=== PATIENT | female | born 1985 | race African-American/Black ===

== ENCOUNTER 2018-08-09 06:52 | Emergency (ER) | payer MEDICAID ==
[~2018-08-09] VITALS: Ht 165.1 cm; Wt 133.0 kg
[2018-08-09 08:40] LABS: BASOPHILS % 0.7 % (0.0-2.0); EOSINOPHILS % 3.3 % (0.0-5.0); HEMATOCRIT. 31.8 % (36.0-48.0); HEMOGLOBIN. 10.6 g/dL (12.0-16.0); LYMPHOCYTES % 11.3 % (20.0-50.0); MEAN CORPUSCULAR HEMOGLOBIN 29.6 pg (28.0-32.0); MEAN CORPUSCULAR VOLUME 88.6 fL (81.0-99.0); MEAN PLATELET VOLUME 7.3 fl (7.4-10.4); MONOCYTES % 7.9 % (2.0-8.0); NEUTROPHILS % 76.8 % (40.0-76.0); PLATELET 325 x1000/uL (130-400); RED BLOOD CELL COUNT 3.59 mill/uL (4.2-5.4); RED CELL DISTRIBUTION WIDTH 14.3 % (11.6-14.6)
[2018-08-09 08:46] LABS: PARTIAL THROMBOPLASTIN TIME 32.2 sec (23.4-31.0); PROTHROMBIN TIME 10.2 sec (9.6-11.0)
[2018-08-09 09:43] VITALS: BP 147/89
== END 2018-08-09 09:44 | disposition home or self-care (01) ==
LOC: ER 06:52
DX: R04.0 Epistaxis (principal); D64.9 Anemia, unspecified; I10 Essential (primary) hypertension
CPT/HCPCS: 36415; 82962; 99283

== ENCOUNTER 2021-06-26 23:50 | Emergency (ER) | payer MEDICAID ==
[~2021-06-26] VITALS: Ht 165.1 cm; Wt 134.0 kg
[2021-06-27] MEDS ORDERED: LOSARTAN POTASSIUM 50 MG TABLET PO STA (02:30)
[2021-06-27 02:51] LABS: BASOPHILS % 0.7 % (0.0-2.0); EOSINOPHILS % 2.8 % (0.0-5.0); HEMATOCRIT. 37.5 % (36.0-48.0); HEMOGLOBIN. 12.6 g/dL (12.0-16.0); LYMPHOCYTES % 35.2 % (20.0-50.0); MEAN CORPUSCULAR HEMOGLOBIN 29.2 pg (28.0-32.0); MEAN CORPUSCULAR VOLUME 87.2 fL (81.0-99.0); MEAN PLATELET VOLUME 7.2 fl (7.4-10.4); MONOCYTES % 7.8 % (2.0-8.0); NEUTROPHILS % 53.5 % (40.0-76.0); PLATELET 266 x1000/uL (130-400); RED CELL DISTRIBUTION WIDTH 14.1 % (11.6-14.6)
[2021-06-27 02:58] LABS: CHLORIDE 104 mEq/L (98-107)
[2021-06-27 04:00] VITALS: BP 126/87
[2021-06-27] MEDS ORDERED: LOSA1TAB34 MT (04:05)
== END 2021-06-27 04:34 | disposition home or self-care (01) ==
LOC: ER 23:50
DX: I10 Essential (primary) hypertension (principal); G40.909 Epilepsy, unspecified, not intractable, without status epilepticus; Z88.8 Allergy status to other drugs, medicaments and biological substances
CPT/HCPCS: 36415; 80053; 85025; 93005; 99285

== ENCOUNTER 2021-07-28 17:05 | Emergency (ER) | payer MEDICAID ==
[~2021-07-28] VITALS: Ht 167.6 cm; Wt 127.0 kg
[~2021-07-28 17:05] MED LIST: LOSA1TAB34 MT
[2021-07-28 18:12] LABS: BASOPHILS % 0.8 % (0.0-2.0); EOSINOPHILS % 3.2 % (0.0-5.0); HEMATOCRIT. 38.8 % (36.0-48.0); HEMOGLOBIN. 13.4 g/dL (12.0-16.0); LYMPHOCYTES % 30.7 % (20.0-50.0); MEAN CORPUSCULAR HEMOGLOBIN 30.4 pg (28.0-32.0); MEAN CORPUSCULAR VOLUME 87.9 fL (81.0-99.0); MEAN PLATELET VOLUME 7.4 fl (7.4-10.4); MONOCYTES % 7.5 % (2.0-8.0); NEUTROPHILS % 57.8 % (40.0-76.0); PLATELET 267 x1000/uL (130-400); RED BLOOD CELL COUNT 4.41 mill/uL (4.2-5.4); RED CELL DISTRIBUTION WIDTH 14.2 % (11.6-14.6)
[2021-07-28 18:24] LABS: HCG SCREEN NEGATIVE
[2021-07-28 18:40] LABS: CHLORIDE 108 mEq/L (98-107)
[2021-07-28] MEDS ORDERED: IBUPROFEN 600MG TABLET PO ONE (22:15)
[2021-07-28 23:30] VITALS: BP 168/94
[2021-07-28] MEDS ORDERED: IBUPROFEN 600MG TABLET PO NR (23:30)
== END 2021-07-28 23:50 | disposition home or self-care (01) ==
LOC: ER 17:05
DX: R51.9 Headache, unspecified (principal); I16.0 Hypertensive urgency; I10 Essential (primary) hypertension; R56.9 Unspecified convulsions; Z88.8 Allergy status to other drugs, medicaments and biological substances
CPT/HCPCS: 36415; 80053; 84703; 85025; 93005; 99284

== ENCOUNTER 2022-12-08 00:10 | Emergency (ER) | payer MEDICAID ==
[~2022-12-08] VITALS: Ht 167.6 cm; Wt 129.0 kg
[2022-12-08 00:49] VITALS: TEMP 98.3; O2SAT 100
[2022-12-08 02:22] VITALS: BP 160/90; PULSE 70; RESP 15
[2022-12-09] MEDS ORDERED: LOSA100T33 MT (15:20)
[2022-12-09] MEDS ORDERED: HYDR50TA MT (15:20)
[2022-12-13] MEDS ORDERED: METF-874 PO (02:29)
== END 2022-12-08 02:18 | disposition home or self-care (01) ==
LOC: ER 00:10
DX: I10 Essential (primary) hypertension (principal)
CPT/HCPCS: 93005; 99283

== ENCOUNTER 2022-12-11 00:42 | Emergency (ER) | payer MEDICAID ==
[~2022-12-11] VITALS: Ht 165.1 cm; Wt 131.7 kg
[~2022-12-11 00:42] MED LIST changes: +HYDR50TA MT; +LOSA100T33 MT; -LOSA1TAB34 MT
[2022-12-11 01:01] VITALS: BP 188/109; PULSE 95; RESP 18; TEMP 98.6; O2SAT 100
[2022-12-11] MEDS ORDERED: HYDR-459 MT (02:34)
[2022-12-13] MEDS ORDERED: METF-874 PO (02:29)
[2022-12-13] MEDS ORDERED: NIFE-32 MT (12:43)
== END 2022-12-11 02:40 | disposition home or self-care (01) ==
LOC: ER 00:42
DX: I10 Essential (primary) hypertension (principal); F41.9 Anxiety disorder, unspecified; E11.9 Type 2 diabetes mellitus without complications
CPT/HCPCS: 81025; 99283

== ENCOUNTER 2023-02-21 18:15 | Emergency (ER) | payer MEDICAID ==
[~2023-02-21] VITALS: Ht 167.6 cm; Wt 109.0 kg
[~2023-02-21 18:15] MED LIST changes: +HYDR-459 MT; +METF-874 PO; +NIFE-32 MT
[2023-02-21 18:32] VITALS: BP 162/100; O2SAT 98
[2023-02-21] MEDS ORDERED: ACETAMINOPHEN 325MG TABLET PO PRN (18:45)
[2023-02-21 18:50] LABS: BASOPHILS % 0.4 % (0.0-2.0); EOSINOPHILS % 2.3 % (0.0-5.0); HEMATOCRIT. 35.8 % (36.0-48.0); HEMOGLOBIN. 11.8 g/dL (12.0-16.0); LYMPHOCYTES % 21.5 % (20.0-50.0); MEAN CORPUSCULAR HEMOGLOBIN 29.3 pg (28.0-32.0); MEAN CORPUSCULAR HGB CONC 32.9 g/dL (31.0-37.0); MEAN PLATELET VOLUME 6.9 fl (7.4-10.4); MONOCYTES % 8.4 % (2.0-8.0); NEUTROPHILS % 67.4 % (40.0-76.0); PLATELET 305 x1000/uL (130-400); RED BLOOD CELL COUNT 4.02 mill/uL (4.2-5.4); RED CELL DISTRIBUTION WIDTH 15.4 % (11.6-14.6); WHITE BLOOD COUNT 9.4 x1000/uL (4.5-11.0)
[2023-02-21 19:25] LABS: ALANINE AMINOTRANSFERASE 11 IU/L (10-49); ALBUMIN 4.1 g/dL (3.2-4.8); ASPARTATE AMINOTRANSFERASE 13 IU/L (<34); B-HCG QUANTITATIVE 33159 mIU/mL (<3); BILIRUBIN TOTAL 0.4 mg/dL (0.1-1.0); CALCIUM 9.6 mg/dL (8.7-10.4); CARBON DIOXIDE 23 mEq/L (21-32); CHLORIDE 107 mEq/L (98-107); CREATININE 0.7 mg/dL (0.6-1.0); GLUCOSE 114 mg/dL (70-105); POTASSIUM 3.5 mEq/L (3.5-5.1); PROTEIN TOTAL 6.8 g/dL (6.0-8.3); SODIUM 139 mEq/L (136-145); UREA NITROGEN BLOOD 9 mg/dL (9-23)
[2023-02-21 21:56] LABS: CLARITY URINE TURBID (CLEAR); COLOR URINE YELLOW (YELLOW); GLUCOSE URINE NEGATIVE (NEGATIVE); KETONES URINE NEGATIVE (NEGATIVE); LEUKOCYTE ESTERASE URINE 1+ (NEGATIVE); NITRITE URINE NEGATIVE (NEGATIVE); OCCULT BLOOD URINE 3+ (NEGATIVE); PH URINE 5.5 (4.5-8.0); PROTEIN URINE NEGATIVE (NEGATIVE); SPECIFIC GRAVITY URINE 1.018 (1.005-1.030); UROBILINOGEN URINE 0.2 E.U./dL (0.2-1.0)
[2023-02-21 21:59] LABS: SQUAMOUS EPITHELIAL CELL URINE 3+ /lpf (RARE/1+); YEAST URINE NONE SEEN
[2023-02-21 22:02] VITALS: PULSE 98; RESP 18; TEMP 98.2
[2023-02-21 22:14] LABS: BACTERIA URINE 3+
== END 2023-02-21 22:10 | disposition home or self-care (01) ==
LOC: ER 18:15
DX: O20.0 Threatened abortion (principal); Z3A.08 8 weeks gestation of pregnancy
CPT/HCPCS: 36415; 76801; 80053; 81003; 81025; 84702; 85025; 86850; 86900; 99291

== ENCOUNTER 2023-10-04 22:16 | Emergency (ER) | payer MEDICAID ==
[~2023-10-04] VITALS: Ht 170.2 cm; Wt 112.0 kg
[2023-10-04 22:27] VITALS: O2SAT 99
[2023-10-05 00:05] LABS: BASOPHILS % 1.1 % (0.0-2.0); EOSINOPHILS % 5.7 % (0.0-5.0); HEMOGLOBIN. 10.9 g/dL (12.0-16.0); LYMPHOCYTES % 19.9 % (20.0-50.0); MEAN CORPUSCULAR HEMOGLOBIN 30.1 pg (28.0-32.0); MEAN CORPUSCULAR VOLUME 91.1 fL (81.0-99.0); MEAN PLATELET VOLUME 7.1 fl (7.4-10.4); MONOCYTES % 12.8 % (2.0-8.0); NEUTROPHILS % 60.5 % (40.0-76.0); PLATELET 337 x1000/uL (130-400); RED BLOOD CELL COUNT 3.63 mill/uL (4.2-5.4); RED CELL DISTRIBUTION WIDTH 15.4 % (11.6-14.6); WHITE BLOOD COUNT 6.5 x1000/uL (4.5-11.0)
[2023-10-05] MEDS: LABETALOL HCL 100MG TABLET PO ONE (00:11)
[2023-10-05 00:12] LABS: CARBON DIOXIDE 23 mEq/L (21-32); CHLORIDE 108 mEq/L (98-107); POTASSIUM 4.2 mEq/L (3.5-5.1); SODIUM 140 mEq/L (136-145)
[2023-10-05] MEDS: AMLODIPINE 5MG TABLET PO ONE (00:12)
[2023-10-05 00:13] LABS: CALCIUM 9.3 mg/dL (8.7-10.4)
[2023-10-05 00:18] LABS: GLUCOSE 93 mg/dL (70-105); UREA NITROGEN BLOOD 9 mg/dL (9-23)
[2023-10-05 00:19] LABS: TROPONIN I HIGH SENSITIVITY 7 ng/L (3.0-34)
[2023-10-05 02:41] LABS: TROPONIN I HIGH SENSITIVITY 6 ng/L (3.0-34)
[2023-10-05] MEDS ORDERED: AMLO10TA80 MT (03:05)
[2023-10-05 04:00] VITALS: BP 157/97; PULSE 74; RESP 20; TEMP 98.8
[2023-10-05] MEDS ORDERED: AMLODIPINE 5MG TABLET PO ONE (04:00)
== END 2023-10-05 04:07 | disposition home or self-care (01) ==
LOC: ER 22:16
DX: I10 Essential (primary) hypertension (principal); E11.9 Type 2 diabetes mellitus without complications; Z79.899 Other long term (current) drug therapy
CPT/HCPCS: 36415; 71045; 80048; 84484; 85025; 93005; 99285